=== PATIENT | male | born 1990 | race Caucasian/White ===

== ENCOUNTER → 2018-07-20 10:15 | Outpatient (CLI) | payer BC, SELFPAY ==
[2018-07-20 10:28] LABS: Basophils % 0.6 % (0.1-2.0); Eosinophils # 0.2 K/mm3 (0.0-0.4); Eosinophils % 3.6 % (0.1-12.0); Hematocrit 52.3 % (42.0-52.0); Hemoglobin 17.5 g/dL (14.1-18.0); Lymphocytes # 1.9 K/mm3 (0.7-4.5); Lymphocytes % 31.5 % (10-50); Mean Corpuscular HGB Conc 33.5 g/dL (31.8-35.4); Mean Corpuscular Hemoglobin 28.7 pg (27.0-31.2); Mean Corpuscular Volume 85.8 fl (80-94); Mean Platelet Volume 7.8 fl (7.4-10.4); Monocytes # 0.4 K/mm3 (0.1-1.0); Monocytes % 6.5 % (1.7-9.3); Neutrophils # 3.4 K/mm3 (1.8-7.8); Neutrophils % 57.8 % (37.0-80.0); Platelet Count 178 K/mm3 (142-424); Red Cell Distribution Width 13.8 % (11.5-17.5); White Blood Count 5.9 K/mm3 (4.8-10.8)
--- NOTE | 2018-07-20 10:28 | XR_ITS ---
XR knee RT 3V HISTORY: ITS.REASON: BILAT KNEE PAIN ORDERING PHYSICIAN: Salima Auguste PATIENT AGE: 28 years COMPARISON: Left knee same date FINDINGS: There is fragmentation of the inferior border of the patella probably posttraumatic in etiology. There are 2 metallic pins one within the patellae other overlying the patella. The medial lateral joint space appear normal. There is minor spurring of the medial tibial spine. There is a well-defined radiolucent tunnel in the anterior tibial at the level of the tibial tubercle likely postsurgical in nature. There is no definite effusion. IMPRESSION: Postsurgical changes of the knee as described
--- NOTE | 2018-07-20 10:28 | XR_ITS ---
XR knee LT 3V HISTORY: ITS.REASON: BILAT KNEE PAIN ORDERING PHYSICIAN: Salima Auguste PATIENT AGE: 28 years COMPARISON: Right knee same date FINDINGS: No fracture or dislocation. No lytic or blastic change. Normal mineralization. No significant arthritic changes evident. No other significant findings IMPRESSION: Negative Knee
[2018-07-20 11:12] LABS: Anion Gap 10.5 mEq/L (5-15); Blood Urea Nitrogen 10 mg/dL (7-18); Calcium 8.6 mg/dL (8.5-10.1); Carbon Dioxide 30 mmol/L (21.0-32.0); Chloride 103 mmol/L (98-107); Creatinine,Serum 1.27 mg/dL (0.70-1.30); Estimated Glomerular Filt Rate 67 ml/min (>60); GFR (African American) 81 ML/MIN (>60); Glucose 97 mg/dL (74-106); Potassium 4.5 mmoL/L (3.5-5.1); Sodium 139 mmol/L (136-145)
== END ==
PROVIDERS: PCP Family Medicine; Visit Provider Nurse Practitioner Family
DX: R79.89 Other specified abnormal findings of blood chemistry (principal); R71.8 Other abnormality of red blood cells; D58.2 Other hemoglobinopathies; M25.561 Pain in right knee
CPT/HCPCS: 36415; 73562; 80048; 85025

== ENCOUNTER → 2018-09-08 12:35 | Outpatient (CLI) | payer BC, SELFPAY | PROVIDERS: PCP Family Medicine; Visit Provider Nurse Practitioner Family | DX: R06.83 Snoring (principal); R53.83 Other fatigue; G47.33 Obstructive sleep apnea (adult) (pediatric) | CPT/HCPCS: 95806; G0399 ==

== ENCOUNTER 2018-12-15 14:08 | Emergency (ER) | payer OTHER, BC, SELFPAY ==
--- NOTE | 2018-12-15 14:22 | XR_ITS ---
XR knee LT 3V HISTORY: Pain following injury ITS.REASON: sports injury ORDERING PHYSICIAN: Indra Alvarez MD PATIENT AGE: 28 years COMPARISON: 07/20/2018 FINDINGS: There are minor osteoarthritic changes of the medial compartment. There is new patella jose with soft tissue swelling and along the anterior aspect of the knee consistent with patellar tendon rupture. MRI may confirm. No fracture is evident. IMPRESSION: Patella jose with soft tissue swelling consistent with patellar tendon rupture
--- NOTE | 2018-12-15 14:22 | XR_ITS ---
XR wrist RT min 3V HISTORY posttraumatic pain ITS.REASON: sports injury ORDERING PHYSICIAN: Indra Alvarez MD PATIENT AGE: 28 years Comparison: None FINDINGS: No fracture or dislocation. No lytic or blastic change. There is normal mineralization.. The joint spaces are well-preserved. No significant degenerative/arthritic changes. No erosive changes evident.. IMPRESSION: Negative wrist
[2018-12-15 14:23] VITALS: BP 152/103; PULSE 103; RESP 18; TEMP 36.6; O2SAT 100; BMI 32.1
--- NOTE | 2018-12-15 14:23 | PC.NURSE ---
rad notified of xrays
--- NOTE | 2018-12-15 14:26 | HMH.EDGENADL ---
ED Disposition Clinical Impression: Patellar tendon rupture Qualifiers: Encounter type: initial encounter Laterality: left Qualified Code(s): S86.812A - Strain of other muscle(s) and tendon(s) at lower leg level, left leg, initial encounter Right wrist sprain Qualifiers: Encounter type: initial encounter Qualified Code(s): S63.501A - Unspecified sprain of right wrist, initial encounter Disposition: Home, Self-Care Condition on Discharge: Fair Additional Instructions: Knee immobilizer and crutches until seen by your orthopedic physician. Today or tomorrow to set up an appointment to be seen as soon as possible. Right wrist brace as needed. Elevate knee. Ice for swelling and pain. Additional instructions for CONTROLLED SUBSTANCES: You have been prescribed a medication that is a controlled substance. Controlled substances include pain medications known as opiates and sedative nerve medications known as benzodiazepines. Tramadol and gabapentin are also controlled substances. Some common opiates include: Codeine (such as Tylenol #3) Hydrocodone (Vicodin, Lortab, Lorcet, [place]) Oxycodone (Percocet, Percodan, Oxycodone, Oxy IR) Some common benzodiazepines include: Diazepam (Valium) Lorazepam (Ativan) Alprazolam (Xanax) Clonazepam (Klonopin) Oxazepam (Serax) All of these controlled substances are highly addictive and frequently abused. Misuse can and frequently does lead to addiction as well as overdose and . Medication should be stored in a locked cabinet or other secure storage unit. Do not store the medication in a motor vehicle. Short term supplies, 3 days or less, are prescribed because of the highly addictive nature of the medication. Any of the controlled substance medication NOT taken should be disposed of properly and NOT SAVED. The recommended method of disposing of unused medications is: Place the medicines in a sealable plastic bag. If the medicine is a solid, crush it or add water to dissolve it. Add something undesirable (cat litter, coffee grounds, etc.) Dispose of sealed bag in household trash Do not flush or pour unused medicines down a sink or drain. Controlled substances should not be shared, given away or sold. Because of the addictive nature and frequent abuse, these medications are sometimes stolen. These medications should be kept in a safe place where they cannot be stolen. Do not keep them in your car or purse. Lost or stolen prescriptions for controlled substances WILL NOT BE REFILLED in this emergency department, regardless of whether a police report was filed. Prescriptions: Oxycodone HCl/Acetaminophen [Percocet 5/325mg tablet] 1 tab PO Q6HP PRN #12 tab PRN Reason: Moderate To Severe Pain Referrals: Emeterio Arcos MD [Primary Care Provider] - - Critical Care Critical Care Time: No Attestation: On 12/15/18, the high probability of a clinically significant, sudden or life threatening deterioration of the following system(s) required my full and direct attention, intervention and personal management. The time I documented below is in addition to time spent performing reported procedures but includes the following listed in this critical care notation. Medical Decision Making - Julio Inquiry Pt receiving controlled substance: Yes Julio was queried for this patient: Yes Reference #:: [id number] Risks and benefits of using a controlled substance: were discussed with pt by me Comment: 0 rxs. Vital Signs: 12/15/18 14:23 Temperature 98 F Temperature Source Oral Pulse Rate [Left Apical] 103 H Respiratory Rate 18 Blood Pressure [Right Arm] 152/103 H Blood Pressure Mean [Right Arm] 119 02 Sat by Pulse Oximetry 100 Oxygen Delivery Method Room Air Orders (Tests/Meds): ED MEDICATIONS Discontinued Medications Generic Name Dose Route Start Last Admin Trade Name Freq PRN Reason Stop Dose Admin Hydromorphone HCl 2 mg 12/15/18 14:30 12/15/18 14:39 D
--- NOTE | 2018-12-15 14:27 | PC.NURSE ---
at the bedside
--- NOTE | 2018-12-15 14:48 | PC.NURSE ---
rad at the bedside taking xrays
[2018-12-15 15:43] VITALS: BP 126/66; PULSE 68; RESP 18; TEMP 36.6; O2SAT 100
== END 2018-12-15 15:51 | disposition home or self-care (01) ==
PROVIDERS: Emergency Provider Emergency Medicine; PCP Family Medicine
DX: S86.812A Strain of other muscle(s) and tendon(s) at lower leg level, left leg, initial encounter (principal); S63.501A Unspecified sprain of right wrist, initial encounter; W22.09XA Striking against other stationary object, initial encounter; Y93.68 Activity, volleyball (beach) (court); Y92.39 Other specified sports and athletic area as the place of occurrence of the external cause; E78.5 Hyperlipidemia, unspecified; I10 Essential (primary) hypertension
CPT/HCPCS: 29505; 73110; 73562; 96372; 99283; J2405

== ENCOUNTER 2019-06-24 15:30 | Outpatient (RCR) | payer OTHER, SELFPAY | END 2019-06-24 15:35 | disposition home or self-care (01) | LOC: PT 15:30 | PROVIDERS: PCP Family Medicine; Visit Provider Orthopaedic Surgery | DX: M66.262 Spontaneous rupture of extensor tendons, left lower leg (principal) | CPT/HCPCS: 97010; 97014; 97016; 97110; 97163; 97164; G0283 ==

== ENCOUNTER → 2019-11-09 10:35 | Outpatient (CLI) | payer BC, SELFPAY ==
--- NOTE | 2019-11-09 10:45 | XR_ITS ---
PROCEDURE: XR ANKLE RT MIN 3V CLINICAL INDICATION: INJURY Pain and bruising COMPARISON: No exams were available for comparison FINDINGS: No fracture or dislocation. Minimal hypertrophic changes of the anterior distal tibia noted. IMPRESSION: No acute findings. Dictated by: Stiven Mcqueen MD 11/09/2019 12:11 Electronically signed by Stiven Mcqueen MD in [place] 11/09/2019 12:11
--- NOTE | 2019-11-09 10:45 | XR_ITS ---
PROCEDURE: XR FOOT RT MIN 3V CLINICAL INDICATION: INJURY Pain and bruising along the top of the foot COMPARISON: No exams were available for comparison FINDINGS: No fracture or dislocation. No lytic or blastic change. There is normal mineralization. The joint spaces are well-preserved. No significant degenerative/arthritic changes. No erosive changes evident. Other findings:None. IMPRESSION: No acute findings. Dictated by: Stiven Mcqueen MD 11/09/2019 12:09 Electronically signed by Stiven Mcqueen MD in [place] 11/09/2019 12:09
--- NOTE | 2019-11-09 10:45 | XR_ITS ---
PROCEDURE: XR TIBIA FIBULA RT 2V CLINICAL INDICATION: INJURY Pain and bruising COMPARISON: No exams were available for comparison FINDINGS: No acute fracture or dislocation. There are mild osteoarthritic changes at the knee and postsurgical changes noted with lucency noted at the proximal tibia laterally which may represent a surgical defect. There are 2 small screws within the patella with well-circumscribed area of calcification along the inferior patellar region. IMPRESSION: No acute findings. Dictated by: Stiven Mcqueen MD 11/09/2019 12:11 Electronically signed by Stiven Mcqueen MD in [place] 11/09/2019 12:11
== END ==
PROVIDERS: PCP Family Medicine; Visit Provider Family Medicine
DX: S99.912A Unspecified injury of left ankle, initial encounter (principal); S99.922A Unspecified injury of left foot, initial encounter; S89.92XA Unspecified injury of left lower leg, initial encounter
CPT/HCPCS: 73590; 73610; 73630

== ENCOUNTER → 2020-06-22 08:36 | Outpatient (CLI) | payer BC, SELFPAY ==
--- NOTE | 2020-06-22 08:38 | CA_ITS ---
APPROVED REPORT EXAM: Comprehensive 2D, Doppler, and color-flow Echocardiogram Boilermaker Apprentice: Yi Tello RT(R) Ht: 5 ft 11 in Wt: 235lbs BSA: 2.26 BP: 168/91 mmHg Indications: GERD, TIM, Abn EKG, CP, palpitations, fatigue, HTN, hyperlipidemia, SOB, MVP Conclusion 1. Patient exercised on Lino protocol achieved 12.8 mets of workload on treadmill with no chest pain EKG was negative for ischemia. 2. Normal left ventricular systolic function at rest, with exercise there is increase in contractility of all the segments of the myocardium with hyperdynamic left ventricular systolic response, no regional wall motion abnormality to suggest underlying ischemic heart disease 3. Normal exercise stress echo. Electronically signed by : Ted Malik, 06/23/2020 10:54:44
== END ==
PROVIDERS: PCP Family Medicine; Visit Provider Urology
DX: R07.9 Chest pain, unspecified (principal); R06.00 Dyspnea, unspecified; R00.2 Palpitations; R94.31 Abnormal electrocardiogram [ECG] [EKG]; I10 Essential (primary) hypertension; G47.33 Obstructive sleep apnea (adult) (pediatric)
CPT/HCPCS: 93017; 93350

== ENCOUNTER → 2021-12-14 14:27 | Outpatient (CLI) | payer BC, SELFPAY ==
[2021-12-24 21:12] LABS: Testosterone, Total, LC/MS 135.2 ng/dL (264.0-916.0); Testosterone,Free 4.2 pg/mL (8.7-25.1)
== END ==
PROVIDERS: Visit Provider Family Medicine
DX: E29.1 Testicular hypofunction (principal)
CPT/HCPCS: 36415; 84402; 84403

== ENCOUNTER → 2022-03-01 14:33 | Outpatient (CLI) | payer BC, SELFPAY | PROVIDERS: PCP Nurse Practitioner Family; Visit Provider Nurse Practitioner Family | DX: Z02.4 Encounter for examination for driving license (principal) | CPT/HCPCS: 87086 ==

== ENCOUNTER 2025-03-08 09:21 | Outpatient (CLI) | payer BC, SELFPAY ==
--- OUTSIDE RECORDS SUMMARY | 2025-03-08 09:30 | XMS_ITS | Clinical Summary ---
Author Organization Healthcare Address [address] [place] [address] Care Team Providers Care Student Worker Name Role Phone Janel Freed MD Primary Care Provider [phone] Allergies Active Allergy Reactions Criticality Noted Date Comments Cephalexin Unknown - Patient st ates they do not know rxn details Low 05/05/2013 Medications Aspirin Low Dose 81 MG chewable tablet 1 (one) time. 2 Active Needle, Disp, 22G X 1-1/2 miscIndications:Hy pogonadism in male Use once every 28 days 12 each 2 Active diclofenac (Voltaren) 75 MG EC tablet TAKE ONE TABLET BY MOUTH 2 TIMES A DAY IF NEEDED 60 tablet 3 Active Testosterone (Androgel) 1.62 % transdermal gel pumpIndications:Hy pogonadism in male 2 pumps BID 75 g 3 Active levocetirizine (Xyzal) 5 MG tabletIndications: Non-seasonal allergic rhinitis due to pollen Take 1 tablet (5 mg) by mouth 1 (one) time each day in the evening. 90 tablet 3 4 Active atorvastatin (Lipitor) 40 MG tabletIndications: Mixed hyperlipidemia Take 1 tablet (40 mg) by mouth 1 (one) time each day. 90 tablet 3 4 Active bisoprolol (Zebeta) 10 MG tabletIndications: Essential (primary) hypertension Take 1 tablet (10 mg) by mouth 1 (one) time each day. 90 tablet 3 4 Active fluticasone (Flonase) 50 MCG/ACT nasal sprayIndications:N on-seasonal allergic rhinitis due to pollen Administer 2 sprays into each nostril 1 (one) time each day. 48 g 3 4 Active famotidine (Pepcid) 40 MG tablet TAKE ONE TABLET BY MOUTH 2 TIMES A DAY 180 tablet 1 5 Active Active Problems Problem Noted Date Diagnosed Date Sleep apnea 08/16/2020 Osteoarthritis of knee 02/13/2018 Acid reflux disease 06/22/2015 Hyperlipemia 10/15/2014 Essential (primary) hypertension 05/05/2013 Nonrheumatic mitral valve insufficiency 05/05/20 13 Encounters Date Type Department Care Team Description 01/27/2025 Refill [facility] [address] [place] [address] Janel Freed MD from Last 3 Months Immunizations Immunization Administration Dates Next Due Hep A, Adult 11/27/2018,05/13/2018 Hep B, Adolescent or Pediatric 10/12/2001,2000,04/09/2001 Influenza, injectable, MDCK, preservative free, quadrivalent 05/03/2019 Influenza, injectable, quadrivalent 05/13/2018 Influenza, injectable, quadr ivalent, preservative free 05/09/2023,05/15/2021,05/08/2020,2016 Influenza, seasonal, injectable 06/12/2016,05/05 MMR 04/09/2001 Tdap 06/10/2018 Family History Medical History Relation Name Comments Crohn's disease Brother Heart disease Father Cancer Other 1 Cardiac Arrest Other 2 arteriosclerotic cardiovascular disease Other 3 Heart disease Other 4 Heart attack Paternal Grandfather Relation Name Status Comments Brother Alive Father Mother Alive Other 1 Other 2 Other 3 Other 4 Paternal Grandfather Social History Tobacco Use Types Packs/Day Years Used Date Smoking Tobacco: Never Smokeless Tobacco: Never Tobacco Cessation:Counseling Given: Not Answered Alcohol Use Standard Drinks/Week Comments Yes 3 (1 standard drink = 0.6 oz pur e alcohol) Humiliation, Afraid, Rape, and Kick questionnair e Answer Date Recorded Within the last year, have y ou been afraid of your partner or ex-partner? No 07/16/2024 Within the last year, have y ou been humiliated or emotionally abused in other ways by your partner or ex-partner? No Within the last year, have y ou been kicked, hit, slapped, or otherwise physically hurt by your partner or ex-partner? No 07/16/2024 Within the last year, have y ou been raped or forced to have any kind of sexual activity by your partner or ex-partner? No 07/16/2024 PHQ-2 Answer Date Recorded Patient Health Questionnaire-2 Score 0 10/05/2024 Hunger Vital Sign Answer Date Recorded Within the past 12 months, y ou worried that your food would run out before you got the money to buy more. Never true 07/16/20 Within the past 12 months, t he food you bought just didn't last and you didn't have money to get more. Never true 07/16/2024 PRAPARE - Transportation Answer Date Re corded In the past 12 months, has l ack of transportation kept you from medical appointments or from getting medications? No 06/21 In the past 12 months, has l ack of transportation kept you from meetings, work, or from getting things needed for daily living? No 07/16/2024 PHQ-9 Answer Date Recorded Patient Health Questionnaire-9 Score 0 10/05/2024 Housing Stability Vital Sign Answer Sabino e Recorded In the last 12 months, was t here a time when you were not able to pay the mortgage or rent on time? No 07/16/2024 In the past 12 months, how m any times have you moved where you were living? 0 07/16/2024 At any time in the past 12 m [facility], were you homeless or living in a senior living (including now)? No 07/16/2024 Utilities Answer Date Recorded In the past 12 months has th e electric, gas, oil, or water company threatened to shut off services in your home? No 07/16/2024 PHQ-2A Answer Date Recorded Patient Health Questionnaire-2 Score 0 05/09/2023 Sex and Gender Information Value Date Recorded Sex Assigned at Not on file Legal Sex Male 7:30 PM EDT Gender Identity Not on file Sexual Orientation Not on file Last Filed Vital Signs Vital Sign Reading Time Taken Comments Blood Pressure 152/88 11/03/2024 9:22 AM EDT Pulse 70 11/03/2024 9:22 AM EDT Temperature 36.4 C (97.6 F) 07/19/2024 10:47 AM EST Respiratory Rate 16 07/19/2024 10:47 AM EST Oxygen Saturation 95% 10/05/2024 9:09 AM EDT Inhaled Oxygen Concentration - - Weight 102 kg (225 lb) 11/08/2024 7:51 AM EDT Height 180.3 cm (5' 11 ) 10/05/2024 9:09 AM EDT Body Mass Index 31.38 10/05/2024 9:09 AM EDT Plan of Treatment Health Maintenance Due Date Last Done Comments [facility]-HIV Screening 1989 [facility]-Hepatitis C Screening 1989 [facility]-/Child/Adol SDOH Screenings 1989 [facility]-Varicella Vaccines (1 of 2 - 13+ 2-dose series) 2002 HPV Vaccines (1 - 3-dose SCDM series) 2016 [id number] Vaccine ( season) 2024 09/08/2020, 08/09/2020 [facility]- SDOH Screenings 01/14/2025 [facility]-Adult SDOH Screenings 01/14/2025 07/16/2024 [facility]-Influenza Vaccine (#1) 03/21/202505/09, 05/15/2021, 05/08/2020, Additional history exists [facility]-Depression Screening 10/05/2025 10/05/2024, 09/18 [facility]-DTaP,Tdap,and Td Vaccines (2 - Td or Tdap) 06/10/2028 06/10/2018 [facility]-Zoster Vaccines (1 of 2) 2039 [facility]-Hepatitis B Vaccines Completed 002, 05/13/2001, 04/09/2001 [facility]-Hepatitis A Vaccines Aged Out 11/27/2018, 04/21 No longer eligible based on patient's age to complete this topic [facility]-Obesity Intervention Completed 025, 10/05/2024, 07/19/2024, Additional history exists [facility]-HIB Vaccines Aged Out No longer e ligible based on patient's age to complete this topic [facility]-IPV Vaccines Aged Out No longer e ligible based on patient's age to complete this topic [facility]-Pneumococcal Vaccine: Pediatrics (0 to 5 Years) and At-Risk Patients (6 to 49 Years) Aged Out No longer eligible based on patient's age to complete this topic [facility]-Rotavirus Vaccines Aged Out No lo nger eligible based on patient's age to complete this topic Insurance ISAIAS Care Teams Student Worker Relationship Specialty Start Date End Date Janel Freed MD [address] [place] [address] PCP - General 12/01/20
--- OUTSIDE RECORDS SUMMARY | 2025-03-08 09:30 | XMS_ITS | Clinical Summary ---
Author Organization [facility] Address [address] [place] [address] Care Team Providers Care Funeral Director'S Assistant Name Role Phone Emeterio Arcos MD Primary Care Provider [phone] Allergies Active Allergy Reactions Criticality Noted Date Comments Cephalexin 10/02/2012 Medications lisinopril (PRINIVIL,ZESTRI L) 20 MG tablet Take 20 mg by mouth daily Active oxyCODONE-acetam inophen (PERCOCET) 7.5-325 MG per tablet Take 1 tablet by mouth every 4 (four) hours as needed for Pain 20 tablet 0 2014 Active Active Problems Problem Noted Date Diagnosed Date Posterior subluxation of shoulder 10/02/2012 Overview (10/02/2012): Right Labral tear of shoulder 10/02/2012 Overview (10/02/2012): Right (possible posterior tear) Family History Medical History Relation Comments Hypertension Father Cancer, Other or Unknown Type Maternal Grandfath er Alcohol abuse Paternal Grandfather Heart attack Paternal Grandfather Hypertension Paternal Grandfather Relation Status Comments Father Maternal Grandfather Paternal Grandfather Social History Tobacco Use Types Packs/Day Years Used Date Smoking Tobacco: Never Alcohol Use Standard Drinks/Week Comments Yes 0 (1 standard drink = 0.6 oz pur e alcohol) rarely Sex and Gender Information Value Date Recorded Sex Assigned at Not on file Legal Sex Male 4:47 PM EST Gender Identity Not on file Sexual Orientation Not on file Last Filed Vital Signs Vital Sign Reading Time Taken Comments Blood Pressure 142/73 2014 11:52 AM EST Pulse 121 2014 11:52 AM EST pt took a Pre-workout supplement Temperature 36.7 C (98.1 F) 2014 11:52 AM EST Respiratory Rate 16 2014 11:5 2 AM EST Oxygen Saturation 100% 2014 11: 52 AM EST Inhaled Oxygen Concentration - - Weight 88.5 kg (195 lb) 10/02/2012 1:43 PM EDT Height 177.8 cm (5' 10 ) 10/02/2012 1:4 3 PM EDT Body Mass Index 27.98 10/02/2012 1:43 PM EDT Plan of Treatment Health Maintenance Due Date Last Done Comments Hepatitis B (HepB) Vaccine ( 1 of 3 - 19+ 3-dose series) 2008 Tdap/Td Vaccine >11 yo (1 - Tdap) 2008 HPV Vaccine (1 - 3-dose SCDM series) 2016 Annual SDOH Screening 07/21/2024 Influenza Vaccine (#1) 2025 Haemophilus Influenzae Type B (Hib) Vaccine Aged Out No longer eligible b ased on patient's age to complete this topic Hepatitis A (HepA) Vaccine Aged Out N o longer eligible based on patient's age to complete this topic Meningococcal ACWY Aged Out No longer eligible based on patient's age to complete this topic Pneumococcal Vaccines 6-49 yo Risk Aged Out No longer eligible based on patient's age to complete this topic Polio (IPV) Aged Out No longer eligi ble based on patient's age to complete this topic Rotavirus (RV) Vaccine Aged Out No lo nger eligible based on patient's age to complete this topic Care Teams Funeral Director'S Assistant Relationship Specialty Start Date End Date Emeterio Arcos MD [address] [place] [address] PCP - General Family Medicine 05/28/14
--- OUTSIDE RECORDS SUMMARY | 2025-03-08 09:30 | XMS_ITS | Referral Summary ---
Author Organization [employer] ([place], [place], [place], [place]) Address [address] [place] [address] Care Team Providers Care Arranging Funeral Director Name Role Phone Unavailable Primary Care Provider Unavailabl e Social History Tobacco Use Types Packs/Day Years Used Date Smoking Tobacco: Never Assessed Sex and Gender Information Value Date Recorded Sex Assigned at Male 01/15/2022 5:41 PM CDT Legal Sex Male 5:41 PM CDT Gender Identity Male 01/15/2022 5:41 PM CDT Sexual Orientation Not on file Plan of Treatment Not on file
--- OUTSIDE RECORDS SUMMARY | 2025-03-08 09:30 | XMS_ITS | Encounter Summary ---
Author Organization Healthcare Address [address] [place] [address] Care Team Providers Care Tax Senior Associate Name Role Phone Janel Freed MD Primary Care Provider [phone] Reason for Visit * Reason Comments Med Refill Encounter Details Date Type Department Care Team (Late st Contact Info) Description 06/02/2023 Refill [facility] [address] [place] [address] Janel Freed MD [address] [place] [address] Hypogonadism in male Social History Tobacco Use Types Packs/Day Years Used Date Smoking Tobacco: Never Smokeless Tobacco: Never PHQ-2 Answer Date Recorded Patient Health Questionnaire-2 Score 0 05/09/2023 PHQ-2A Answer Date Recorded Patient Health Questionnaire-2 Score 0 05/09/2023 Sex and Gender Information Value Date Recorded Sex Assigned at Not on file Legal Sex Male 7:30 PM EDT Gender Identity Not on file Sexual Orientation Not on file documented as of this encounter Plan of Treatment Not on file documented as of this encounter Visit Diagnoses Diagnosis Hypogonadism in male documented in this encounter Additional Health Concerns Infection Onset Date Last Indicated Resolved Time COVID-19 Rule-Out 06/17/2023 06/17/2023 06/17/2023 7:50 PM EST Assessment Noted Time A Body Mass Index follow-up plan has been documented for the patient 05/09/2023 5:11 PM EDT documented as of this encounter Care Teams Tax Senior Associate Relationship Specialty Start Date End Date Janel Freed MD [address] [facility] [place] [address] PCP - General 12/01/20 documented as of this encounter
--- OUTSIDE RECORDS SUMMARY | 2025-03-08 09:30 | XMS_ITS | Clinical Summary ---
Author Organization [employer] ([place], [place], [place], [place]) Address [address] [place] [address] Care Team Providers Care Composition Floor Setter Name Role Phone Unavailable Primary Care Provider Unavailabl e Social History Tobacco Use Types Packs/Day Years Used Date Smoking Tobacco: Never Assessed Sex and Gender Information Value Date Recorded Sex Assigned at Male 01/15/2022 5:41 PM CDT Legal Sex Male 5:41 PM CDT Gender Identity Male 01/15/2022 5:41 PM CDT Sexual Orientation Not on file Plan of Treatment Health Maintenance Due Date Last Done Comments Depression Screening (12+) 2001 Tobacco Cessation Counseling and Screening (12+) 2001 HIV Screening 2004 Hepatitis C Screening 2007 COVID-19 VACCINE (2023-2 5 season) 2024 09/08/2020, 08/09/2020 Lipid Panel 2024 Influenza Vaccine (#1) 2025 05/03/2019 DTAP/TDAP/TD VACCINES (2 - T d or Tdap) 06/10/2028 06/10/2018 Pneumococcal Vaccine: 0-49 Years Aged Out No longer eligible b ased on patient's age to complete this topic
--- OUTSIDE RECORDS SUMMARY | 2025-03-08 09:30 | XMS_ITS | Encounter Summary ---
Author Organization Healthcare Address [address] [place] [address] Care Team Providers Care Mechanic Industrial Truck Name Role Phone Janel Freed MD Primary Care Provider [phone] Reason for Visit * Reason Comments Med Refill Encounter Details Date Type Department Care Team (Late st Contact Info) Description 01/27/2025 Refill [facility] [address] [place] [address] Janel Freed MD [address] [place] [address] Social History Tobacco Use Types Packs/Day Years Used Date Smoking Tobacco: Never Smokeless Tobacco: Never Alcohol Use Standard Drinks/Week Comments Yes 3 [...] any time in the past 12 m [facility], were you homeless or living in a longterm (including now)? No 07/16/2024 Utilities Answer Date [...] on file documented as of this encounter Miscellaneous Notes * Telephone Encounter - Emeterio Irene PharmD - 01/28/2025 9:13 AM EDT 1 medication(s) has been approved per protocol. documented in this encounter Plan of Treatment Not on file documented as of this encounter Visit Diagnoses Not on filedocumented in this encounter Additional Health Concerns Assessment Noted Time PHQ-9 Depression Total Score: 0 10/06/19 25 9:13 AM EDT A fall risk assessment has been complete d for the patient 11/08/2024 7:54 AM EDT A Body Mass Index follow-up plan has been documented for the patient 11/08/2024 8:15 AM EDT documented as of this encounter Care Teams Mechanic Industrial Truck Relationship Specialty Start Date End Date Janel Freed MD [address] [place] [id number] PCP - General 12/01/20 documented as of this encounter
[2025-03-08 10:03] LABS: Hematocrit 49.0 % (42.0-52.0); Hemoglobin 16.7 g/dL (14.1-18.0); Mean Corpuscular HGB Conc 34.1 g/dL (31.8-35.4); Mean Corpuscular Hemoglobin 29.1 pg (27.0-31.2); Mean Corpuscular Volume 85.5 fl (80-94); Platelet Count 185 K/mm3 (142-424); Red Blood Count 5.73 M/mm3 (4.60-6.20); White Blood Count 6.5 K/mm3 (4.8-10.8)
[2025-03-08 10:21] LABS: Albumin Level 4.9 g/dl (3.5-5.0); Chloride 104 mmol/L (98-107); Potassium 4.4 mmoL/L (3.5-5.1); Sodium 139 mmol/L (136-145)
[2025-03-08 10:24] LABS: Alanine Aminotransferase 59 U/L (12-78); Albumin/Globulin Ratio 2.1 (1.1-1.8); Alkaline Phosphatase 58 U/L (38-126); Anion Gap 13.4 mEq/L (5-15); Aspartate Amino Transferase 48 U/L (17-59); Bilirubin,Total 1.7 mg/dl (0.2-1.3); Blood Urea Nitrogen 13 mg/dl (9-20); Calcium 9.4 mg/dl (8.4-10.2); Carbon Dioxide 26 mmol/L (22.0-30.0); Cholesterol 129 mg/dl (140-200); Creatinine,Serum 1.00 mg/dl (0.66-1.25); Estimated Glomerular Filt Rate 85 ml/min (>60); GFR (African American) 103 ML/MIN (>60); Globulin 2.3 g/dL (1.3-3.2); Glucose 106 mg/dl (74-100); Total Protein,Serum 7.2 g/dl (6.3-8.2); Triglycerides 177 mg/dl (30-150)
[2025-03-08 10:25] LABS: HDL Cholesterol 37 mg/dl (40-60)
[2025-03-08 10:41] LABS: Free T4 (Free Thyroxine) 1.12 ng/dl (0.78-2.19)
[2025-03-08 10:49] LABS: RBC Morphology Normal; Total Cells Counted 100
[2025-03-08 10:56] LABS: Thyroid Stimulating Hormone 1.00 uIU/mL (0.465-4.68)
[2025-03-08 11:06] LABS: Hemoglobin A1C 5.4 % (4.0-6.0)
[2025-03-09 11:18] LABS: Testosterone,Total >1500 ng/dL (264-916)
[2025-03-09 11:18] LABS: FSH <0.3 mIU/mL (1.5-12.4); LH <0.3 mIU/mL (1.7-8.6)
== END 2025-03-08 23:59 | disposition home or self-care (01) ==
PROVIDERS: PCP Family Medicine; Visit Provider Nurse Practitioner
DX: Z00.00 Encounter for general adult medical examination without abnormal findings (principal); I10 Essential (primary) hypertension; G47.33 Obstructive sleep apnea (adult) (pediatric)
CPT/HCPCS: 80053; 80061; 83001; 83002; 83036; 84146; 84402; 84403; 84439; 84443; 85007; 85014; 85018; 85048; 85049

== ENCOUNTER 2025-03-16 09:43 | Outpatient (CLI) | payer BC, SELFPAY ==
--- OUTSIDE RECORDS SUMMARY | 2025-03-16 09:46 | XMS_ITS | Clinical Summary ---
Author Organization [employer] ([place], [place], [place], [place]) Address [address] [place] [address] Care Team Providers Care Nurse School Name Role Phone Unavailable Primary Care Provider [...]
--- OUTSIDE RECORDS SUMMARY | 2025-03-16 09:46 | XMS_ITS | Clinical Summary ---
Author Organization [facility] Address [address] [place] [id number] Care Team Providers Care Zoning Technician Name Role Phone Emeterio Arcos MD Primary Care Provider [phone] Allergies Active Allergy Reactions Criticality Noted Date [...] age to complete this topic Care Teams Zoning Technician Relationship Specialty Start Date End Date Emeterio Arcos MD [address] [place] [address] PCP - General Family Medicine 05/28/14
--- OUTSIDE RECORDS SUMMARY | 2025-03-16 09:46 | XMS_ITS | Encounter Summary ---
Author Organization Healthcare Address [address] [place] [address] Care Team Providers Care Stitch Wheeler Name Role Phone Janel Freed MD Primary Care Provider [phone] Reason for Visit * Reason Comments Med Refill Encounter Details Date Type Department Care Team (Late st Contact Info) Description 06/02/2023 Refill [facility] [address] [place] [address] Janel Freed MD [address] [place] [address] Hypogonadism in male Social History [...] documented as of this encounter Care Teams Stitch Wheeler Relationship Specialty Start Date End Date Janel Freed MD [address] [facility] [address] PCP - General 12/01/20 documented as of this encounter
--- OUTSIDE RECORDS SUMMARY | 2025-03-16 09:46 | XMS_ITS | Encounter Summary ---
Author Organization Healthcare Address [address] [place] [address] Care Team Providers Care Prompt Care Rn Name Role Phone Janel Freed MD Primary Care Provider [phone] Reason for Visit * Reason Comments Med Refill Encounter Details Date Type Department Care Team (Late st Contact Info) Description 01/27/2025 Refill [facility] [address] [place] [address] Janel Freed MD [address] [place] [address] Social History Tobacco Use Types [...] any time in the past [address] [facility], were you homeless or living in a [place] [facility] [place] (including now)? No 07/16/2024 Utilities Answer Date [...] documented as of this encounter Care Teams Prompt Care Rn Relationship Specialty Start Date End Date Janel Freed MD [address] [place] [id number] PCP - General 12/01/20 documented as of this encounter
--- OUTSIDE RECORDS SUMMARY | 2025-03-16 09:47 | XMS_ITS | Referral Summary ---
Author Organization [facility] ([place], [place], [place], [place]) Address [address] [place] [address] Care Team Providers Care Timber Framer Name Role Phone Unavailable Primary Care Provider [...]
--- OUTSIDE RECORDS SUMMARY | 2025-03-16 09:47 | XMS_ITS | Clinical Summary ---
Author Organization Healthcare Address [address] [place] [address] Care Team Providers Care Banking Officer Name Role Phone Janel Freed MD Primary Care Provider [phone] Allergies Active Allergy Reactions Criticality Noted Date [...] Type Department Care Team Description 01/27/2025 Refill [facility] [address] [place] [address] Janel Freed MD from Last [...] any time in the past 12 m [facility], were you homeless or living in a [facility] (including now)? No 07/16/2024 Utilities Answer Date [...] Vaccines (1 - 3-dose SCDM series) 2016 [id number] Vaccine ( season) 2024 09/08/2020, 08/09/2020 [facility]- [...] complete this topic Insurance ISAIAS Care Teams Banking Officer Relationship Specialty Start Date End Date Janel Freed MD [address] [place] [address] PCP - General 12/01/20
[2025-03-22 12:10] LABS: Renin Activity, Plasma 2.115 ng/mL/hr (0.167-5.380)
[2025-03-22 13:23] LABS: Dopamine, Plasma < 10.0 pg/mL (0.0-36.7); Epinephrine, Plasma 88.9 pg/mL (0.0-55.4); Norepinephrine, Plasma 221 pg/mL (115-524)
== END 2025-03-16 23:59 | disposition home or self-care (01) ==
LOC: LAB 09:43
PROVIDERS: PCP Family Medicine; Visit Provider Physician Assistant
DX: G47.33 Obstructive sleep apnea (adult) (pediatric) (principal); I10 Essential (primary) hypertension; R94.31 Abnormal electrocardiogram [ECG] [EKG]; R06.00 Dyspnea, unspecified; R07.9 Chest pain, unspecified; R93.1 Abnormal findings on diagnostic imaging of heart and coronary circulation
CPT/HCPCS: 36415; 82088; 82384; 83835; 84244

== ENCOUNTER 2025-03-18 07:10 | Outpatient (CLI) | payer BC, SELFPAY ==
--- OUTSIDE RECORDS SUMMARY | 2025-03-18 07:13 | XMS_ITS | Clinical Summary ---
Author Organization [facility] ([place], [place], [place]) Address [address] [place] [address] Care Team Providers Care Quenching Machine Operator Name Role Phone Unavailable Primary Care Provider [...]
--- OUTSIDE RECORDS SUMMARY | 2025-03-18 07:13 | XMS_ITS | Clinical Summary ---
Author Organization [facility] Address [address] [place] [id number] Care Team Providers Care Fork Truck Driver Name Role Phone Emeterio Arcos MD Primary Care Provider [phone] Allergies Active Allergy Reactions Criticality Noted Date [...] age to complete this topic Care Teams Fork Truck Driver Relationship Specialty Start Date End Date Emeterio Arcos MD [address] [place] [address] PCP - General Family Medicine 05/28/14
--- OUTSIDE RECORDS SUMMARY | 2025-03-18 07:13 | XMS_ITS | Referral Summary ---
Author Organization [facility] ([place], [place], [place], [place]) Address [address] [place] [address] Care Team Providers Care Information Assistant Name Role Phone Unavailable Primary Care Provider [...]
--- OUTSIDE RECORDS SUMMARY | 2025-03-18 07:13 | XMS_ITS | Encounter Summary ---
Author Organization Healthcare Address [address] [place] [address] Care Team Providers Care Entry Level Chemist Name Role Phone Janel Freed MD Primary Care Provider [phone] Reason for Visit * Reason Comments Med Refill Encounter Details Date Type Department Care Team (Late st Contact Info) Description 01/27/2025 Refill [facility] [address] [place] [address] Janel Freed MD [address] [place] [address] Social History Tobacco Use Types [...] any time in the past 12 m [facility], were you homeless or living in a intermediate (including now)? No 07/16/2024 Utilities Answer Date [...] documented as of this encounter Care Teams Entry Level Chemist Relationship Specialty Start Date End Date Janel Freed MD [address] [place] [id number] PCP - General 12/01/20 documented as of this encounter
--- OUTSIDE RECORDS SUMMARY | 2025-03-18 07:13 | XMS_ITS | Clinical Summary ---
Author Organization [facility] Address [address] [place] [address] Care Team Providers Care Community Development Officer Name Role Phone Janel Freed MD Primary Care Provider [phone] Allergies Active Allergy Reactions Criticality Noted Date [...] Type Department Care Team Description 01/27/2025 Refill [facility] [address] [place] [address] Janel Freed MD from Last [...] any time in the past 12 m [facility], were you homeless or living in a [facility] (including now)? No 07/16/2024 Utilities Answer Date [...] Vaccines (1 - 3-dose SCDM series) 2016 [id number] Vaccine ( season) 2024 09/08/2020, 08/09/2020 [facility]- [...] complete this topic Insurance ISAIAS Care Teams Community Development Officer Relationship Specialty Start Date End Date Janel Freed MD [address] [place] [address] PCP - General 12/01/20
--- OUTSIDE RECORDS SUMMARY | 2025-03-18 07:13 | XMS_ITS | Encounter Summary ---
Author Organization [facility] Address [address] [place] [address] Care Team Providers Care Matzo Forming Machine Operator Name Role Phone Janel Freed MD Primary Care Provider [phone] Reason for Visit * Reason Comments Med Refill Encounter Details Date Type Department Care Team (Late st Contact Info) Description 06/02/2023 Refill [facility] [address] [place] [address] Janel Freed MD [address] [place] [address] Hypogonadism in male Social History [...] documented as of this encounter Care Teams Matzo Forming Machine Operator Relationship Specialty Start Date End Date Janel Freed MD [address] [facility] [place] [address] PCP - General 12/01/20 documented as of this encounter
--- NOTE | 2025-03-18 07:30 | US_ITS ---
FINAL REPORT TECHNIQUE: Ultrasound images of the kidneys and bladder were obtained. CLINICAL HISTORY: R07.9 - Chest pain, unspecified-- hypertension COMPARISON: None FINDINGS: The right kidney measures 10.5 cm in length. It is normal in echogenicity. There is no hydronephrosis. The left kidney measures 11.1 cm in length. It is normal in echogenicity. There is no hydronephrosis. The portions of the spleen visualized are unremarkable. IMPRESSION: No hydronephrosis or renal mass. Reviewed, Interpreted and Dictated by Barry Martines MD Transcribed by Magali Bai Authenticated and [facility]
--- NOTE | 2025-03-18 08:00 | CA_ITS ---
FINAL REPORT CLINICAL HISTORY: HTN COMPARISON: None FINDINGS: Aorta velocity: 153.2 cm/sec Right kidney: 10.5 cm. No evidence of hydronephrosis or mass. Right intrarenal RI: 0.51-0.70 Right renal artery velocity: 195 cm/sec. Right RAR (Renal artery-Aortic Ratio): 1.3 Left Kidney: 11 cm. No evidence of hydronephrosis or mass. Left intrarenal RI: 0.55-0.63 Left renal artery velocity: 153 cm/sec. Left RAR (Renal Artery-Aortic Ratio): 0.9 IMPRESSION: Less than 60% stenosis of the renal arteries bilaterally. CT angiogram or postcontrast MR angiogram would be more sensitive for evaluation of possible renal artery stenosis. Reviewed, Interpreted and Dictated by Brenda Villeda MD Transcribed by Magali Bai Authenticated and [facility]
== END 2025-03-18 23:59 | disposition home or self-care (01) ==
PROVIDERS: PCP Family Medicine; Visit Provider Physician Assistant
DX: I70.1 Atherosclerosis of renal artery (principal); R07.9 Chest pain, unspecified; R06.00 Dyspnea, unspecified; I10 Essential (primary) hypertension; R94.31 Abnormal electrocardiogram [ECG] [EKG]; R53.83 Other fatigue; R93.1 Abnormal findings on diagnostic imaging of heart and coronary circulation; G47.33 Obstructive sleep apnea (adult) (pediatric)
CPT/HCPCS: 76770; 82384; 83835; 84585; 93976

== ENCOUNTER 2025-03-30 12:03 | Outpatient (CLI) | payer BC, SELFPAY ==
--- NOTE | 2025-03-30 | CA_ITS ---
APPROVED REPORT Exam: Exercise Treadmill Technologist: Catrina Mueller Ht: 5 ft 11 in Wt: 242 lbs BSA: 2.29 m2 HR: 94 bpm BP: 158/103 mmHg Stress Test Details Test: Exercise stress testing was performed using a Lino protocol. HR Resting HR: 94 bpm Max Heart Rate (APMHR): 185.754176 bpm Max HR Achieved: 182 bpm Target HR (85% APMHR): 157.416887 bpm % of APMHR: 98.38 Recovery HR: 118 bpm BP Resting BP: 158.0/103.0 mmHg Max BP: 160.0/100.0 mmHg Recovery BP: 142.0/96.0 mmHg ECG Resting ECG: Normal sinus rhythm Stress ECG Conclusion Lung CTA prior to start of test. Test stopped due to knee pain. Symptoms: None Arrhythmias/Ectopy: PVC/ ventricular couplet ST-T Changes: Less than 0.[address] segment changes. Conclusion: Gamez treadmill score +10 Electronically signed by : Luba Aparicio MD 03/30/2025 18:10:53
--- OUTSIDE RECORDS SUMMARY | 2025-03-30 12:06 | XMS_ITS | Clinical Summary ---
Author Organization [facility] Address [address] [place] [id number] Care Team Providers Care Auto Porter Name Role Phone Emeterio Arcos MD Primary Care Provider [phone] Allergies Active Allergy Reactions Criticality Noted Date [...] age to complete this topic Care Teams Auto Porter Relationship Specialty Start Date End Date Emeterio Arcos MD [address] [place] [address] PCP - General Family Medicine 05/28/14
--- OUTSIDE RECORDS SUMMARY | 2025-03-30 12:06 | XMS_ITS | Encounter Summary ---
Author Organization [facility] Address [address] [place] [address] Care Team Providers Care Foundry Supervisor Name Role Phone Janel Freed MD Primary Care Provider [phone] Reason for Visit * Reason Comments Med Refill Encounter Details Date Type Department Care Team (Late st Contact Info) Description 06/02/2023 Refill [facility] [address] [place] [address] Janel Freed MD [address] [place] [address] Hypogonadism in male Social History [...] documented as of this encounter Care Teams Foundry Supervisor Relationship Specialty Start Date End Date Janel Freed MD [address] [facility] [place] [facility] [place] [address] PCP - General 12/01/20 documented as of this encounter
--- OUTSIDE RECORDS SUMMARY | 2025-03-30 12:06 | XMS_ITS | Clinical Summary ---
Author Organization Healthcare Address [address] [place] [address] Care Team Providers Care Spiral Winder Name Role Phone Janel Freed MD Primary Care Provider [phone] Allergies Active Allergy Reactions Criticality Noted Date [...] Type Department Care Team Description 01/27/2025 Refill [facility] [address] [place] [address] Janel Freed MD from Last [...] any time in the past 12 m [facility], were you homeless or living in a [facility] (including now)? No 07/16/2024 Utilities Answer Date [...] Vaccines (1 - 3-dose SCDM series) 2016 [facility]- SDOH Screenings 01/14/2025 [facility]-Adult SDOH Screenings 01/14/2025 07/16/2024 [id number] Vaccine (3 - 2024- season) 2025 09/08/2020, 08/09/2020 [facility]-Influenza Vaccine (#1) 03/21/202505/09, 05/15/2021, 05/08/2020, Additional [...] complete this topic Insurance ISAIAS Care Teams Spiral Winder Relationship Specialty Start Date End Date Janel Freed MD [address] [place] [address] PCP - General 12/01/20
--- NOTE | 2025-03-30 12:30 | NM_ITS ---
APPROVED REPORT Exam: Nuclear Stress Test Indication: palpitations..fatigue Patient Location: Outpatient Stress Tech: Catrina Mueller SC Tech:BUNNY Stover RT(R)(N) Ht: 5 ft 11 in Wt: 237 lbs HR: 87 bpm BP: 158/103 mmHg BSA: 2.27 m2 TID: 0.96 BMI: 33.0 History: palpitations..fatigue Procedure: Patient exercised on Lino protocol 10:02 minutes and sec, resting heart rate 57 bpm, resting blood pressure 158/103 mmHg, with exercise maximum heart rate achived was 182 bpm which is 98 % of the maximum predicted heart rate and blood pressure was 160/100 mmHg. Patient denied any complaint of chest pain. Patient has average exercise capacity, achieved 12.1 METs of workload on treadmill, the blood pressure response to exercise was normal . Cardiac Stress and Resting SPECT Images: Cardiac Stress and Resting SPECT images were obtained using technetium 99m Myoview 32.5 mCi stress and 10.72 mCi at rest. Resting and stress imaging in supine and prone positions demonstrate a medium sized, moderate, partially reversible perfusion defect in the basal to mid inferior LV grimes. There is also a small sized, moderate, fixed perfusion defect in the basal septal LV wall. Gated imaging demonstrates mild reduction global LV systolic function. There is moderate hypokinesis of the basal inferior LV wall. LVEF is calculated at 49%. Conclusion: Medium sized, moderate, partially reversible perfusion defect in the basal to mid inferior LV grimes. There is also a small sized, moderate, fixed perfusion defect in the basal septal LV wall. Findings are suggestive of partial reversible ischemia. Gated imaging demonstrates mild reduction global LV systolic function. There is moderate hypokinesis of the basal inferior LV wall. LVEF is calculated at 49%. Correlation of LV systolic function with new or recent TTE is suggested. Electronically signed by : Luba Aparicio MD 03/30/2025 16:58:17
[2025-03-30 14:00] VITALS: BP 158/103; BP 160/100; PULSE 94; RESP 16
[2025-03-30] MEDS: SODIUM CHLORIDE 0.9% 10ML SYR (RAD ONLY) 10 ML IV ×2 (14:02)
[2025-03-30] MEDS: ISOTOPE MYOVIEW (PER STUDY) 1 DOSE IV (14:02)
== END 2025-03-30 23:59 | disposition home or self-care (01) ==
LOC: RAD 12:04
PROVIDERS: PCP Family Medicine; Visit Provider Physician Assistant
DX: I49.3 Ventricular premature depolarization (principal); I10 Essential (primary) hypertension; R94.39 Abnormal result of other cardiovascular function study; R94.31 Abnormal electrocardiogram [ECG] [EKG]; R93.1 Abnormal findings on diagnostic imaging of heart and coronary circulation; R53.83 Other fatigue
CPT/HCPCS: 78452; 93017; 93018; A9502

== ENCOUNTER 2025-04-06 10:38 | Day surgery (SDC) | payer BC, SELFPAY ==
[2025-04-06] VITALS (11 sets, daily range): BP systolic 110–158; BP diastolic 68–116; PULSE 74–91; RESP 18–20; O2SAT 95–98; BMI 33.0
--- NOTE | 2025-04-06 07:09 | IR_ITS ---
APPROVED REPORT Patient Location: Outpatient Card Writer Hand: BUNNY Mike RT (R) PROCEDURES Left heart catheterization Left ventriculogram Selective coronary angiogram INDICATION Abnormal Myoview, Angina pectoris Informed consent was obtained prior to the procedure. COMPLICATIONS NONE Estimated Blood Loss: LESS THAN 10 ML TECHNIQUE One percent lidocaine used to anesthetize the right anterior aspect of the wrist. The right radial artery was accessed via the Seldinger technique. A 6 Romanian sheath was placed in the right radial artery. 2.5 mg of Verapamil, 800 mcg of nitroglycerin, 1mg Lidocaine and 5000 U Heparin were given through the arterial sheath. The JL3 catheter was also used to perform left heart catheterization, left ventriculogram and selective coronary angiogram. At the end of the procedure the sheath was removed good hemostasis was achieved using Traclet band, patient was transferred to the postop holding area in stable condition. ANGIOGRAPHIC RESULTS The left main artery Normal The left anterior descending artery Is proximally normal. The mid vessel is free of atherosclerotic plaque however there is a 20 mm 40% myocardial bridge during systole The circumflex artery Nondominant normal The right coronary artery Large dominant normal The ADAMS ventriculogram reveals Normal 60 to 65% The left ventricular end-diastolic pressure 15 mmHg IMPRESSION Clinically inconsequential myocardial bridge No angiographic evidence of atherosclerosis Normal ejection fraction Borderline LVEDP PLAN 1. Consider sleep study 2. Medical management 3. Patient's heart is horizontally oriented which likely contributed to the false positive stress test Electronically signed by : Zeeshan Reis MD 04/06/2025 11:39:55
[2025-04-06 11:00] LABS: Hematocrit 49.3 % (42.0-52.0); Hemoglobin 17.4 g/dL (14.1-18.0); Immature Granulocytes % 0.5 %; Mean Corpuscular HGB Conc 35.3 g/dL (31.8-35.4); Mean Corpuscular Hemoglobin 29.9 pg (27.0-31.2); Mean Corpuscular Volume 84.7 fl (80-94); Nucleated Red Blood Cells % 0 %; Platelet Count 194 K/mm3 (142-424); Red Blood Count 5.82 M/mm3 (4.60-6.20); Red Cell Distribution Width-SD 35.5 fL; White Blood Count 6.5 K/mm3 (4.8-10.8)
[2025-04-06] MEDS: METHYLPREDNISOLONE SOD SUCC 125MG VIAL 125 MG IV (11:02)
[2025-04-06] MEDS: FAMOTIDINE 20MG/2ML VIAL 20 MG IV (11:02)
[2025-04-06 11:07] LABS: Chloride 102 mmol/L (98-107); Potassium 4.1 mmoL/L (3.5-5.1); Sodium 139 mmol/L (136-145)
[2025-04-06 11:09] LABS: Blood Urea Nitrogen 10 mg/dl (9-20); Creatinine Clearance Estimated 157 mL/min (50-200); Creatinine,Serum 1.00 mg/dl (0.66-1.25); Estimated Glomerular Filt Rate 85 ml/min (>60); GFR (African American) 103 ML/MIN (>60)
[2025-04-06 11:10] LABS: Anion Gap 14.1 mEq/L (5-15); Calcium 9.5 mg/dl (8.4-10.2); Carbon Dioxide 27 mmol/L (22.0-30.0); Glucose 104 mg/dl (74-100)
[2025-04-06] MEDS: VERAPAMIL 2.5MG/ML 2ML VIAL 2.5 MG IV (11:24)
[2025-04-06] MEDS: HEPARIN 1,000 UNITS/ML 10ML VIAL (CATH LAB) 5000 UNIT IV (11:24)
[2025-04-06] MEDS: LIDOCAINE 1% 10ML MDV 10 ML IJ (11:24)
[2025-04-06] MEDS: HEPARIN 1,000 UNITS/500ML NS (CATH LAB) 3000 UNIT IV (11:24)
[2025-04-06] MEDS: NITROGLYCERIN 800MCG/8ML SYR (CATH LAB) 800 MCG IA (11:24)
[2025-04-06] MEDS: 0.9 % SODIUM CHLORIDE 500 ML 25 ML IV (11:25)
[2025-04-06] MEDS: FENTANYL 100MCG/2ML VIAL 50 MCG IV (11:37)
[2025-04-06] MEDS: MIDAZOLAM HCL 1MG/ML 5ML VIAL 1 MG IV (11:37)
[2025-04-06] MEDS: IOPAMIDOL-370 (76%);100ML BOTTLE 60 ML IV (12:46)
== END 2025-04-06 13:52 | disposition home or self-care (01) ==
LOC: CATHLAB 10:39
PROVIDERS: PCP Family Medicine; Visit Provider Internal Medicine
PROC: 4A023N7 Measurement of Cardiac Sampling and Pressure, Left Heart, Percutaneous Approach (ICD-10-PCS; CPT 93452; principal; 2025-04-06 11:00)
DX: Q24.5 Malformation of coronary vessels (principal); I20.89 Other forms of angina pectoris; R94.39 Abnormal result of other cardiovascular function study; R06.00 Dyspnea, unspecified; R94.31 Abnormal electrocardiogram [ECG] [EKG]; I10 Essential (primary) hypertension; R93.1 Abnormal findings on diagnostic imaging of heart and coronary circulation; R53.83 Other fatigue; K21.9 Gastro-esophageal reflux disease without esophagitis; E78.5 Hyperlipidemia, unspecified; I34.1 Nonrheumatic mitral (valve) prolapse; G47.33 Obstructive sleep apnea (adult) (pediatric); Z82.49 Family history of ischemic heart disease and other diseases of the circulatory system; Z79.82 Long term (current) use of aspirin; Z79.1 Long term (current) use of non-steroidal anti-inflammatories (NSAID); Z79.890 Hormone replacement therapy; Z79.899 Other long term (current) drug therapy; Z88.1 Allergy status to other antibiotic agents
CPT/HCPCS: 80048; 85025; 93458; 99152; C1725; C1769; J1200; J1644; J2003; J2919; J3010; J7040; Q9967